=== PATIENT | female | born 1985 | race Caucasian/White ===

== ENCOUNTER 2017-02-08 20:10 | Emergency (ER) | payer BC ==
[2017-02-08 20:14] VITALS: TEMP 98.4
--- NOTE | 2017-02-08 20:17 | EDPHY ---
H & P Stated Complaint: Black spots in left field of vision, resolved upon arrival, [facility] , nausea now Time Seen by Provider: 02/08/17 20:16 HPI/ROS: CHIEF COMPLAINT: Headache, visual changes HISTORY OF PRESENT ILLNESS: The patient is a 31-year-old female presenting with sudden onset of headache with visual changes. The patient was cooking and started seeing black spots and "zig zags." She tried lying down but visual changes continued for about 20 minutes. She then developed pressure behind her left eye followed by a left sided headache. She took 600mg Ibuprofen but headache progressively worsened. She has associated nausea, no emesis. Patient does not usually get headaches. She has no history of migraines. She denies new numbness, new weakness, confusion, continued visual changes, trouble with speech. REVIEW OF SYSTEMS: A ten point review of systems was performed and is negative with the exception of the items mentioned in the HPI. Past medical history: Lipoma removal. Past surgical history: Denies. Family history: Noncontributory. Social history: with two children. at bedside. General Appearance: Alert. Vital signs reviewed. Eyes: Pupils equal and round, no conjunctival injection, no discharge. Anicteric. ENT, Mouth: Mucous membranes are moist, no oropharyngeal erythema or edema. Neck: No lymphadenopathy, supple. No meningismus. Respiratory: Lungs are clear to auscultation; no wheezes, rales, or rhonchi. Cardiovascular: Regular rate and rhythm; no murmur, rub, or gallop. Gastrointestinal: Abdomen is soft and nontender, no masses or organomegaly, bowel sounds normal. Skin: Warm and dry, no rashes on exposed skin, normal color. Back: Nontender to palpation over the thoracolumbar spine. No CVAT. Extremities: No lower extremity edema, no calf tenderness or swelling. Neurological: Alert and oriented. Moving all four extremities easily and equally. Cranial nerves II through XII are examined and are intact (visual acuity not tested). Strength is 5 over 5 bilaterally with testing of all major motor groups. Sensation is intact to light touch over all 4 extremities. Deep tendon reflexes are 2+ in the biceps and knees bilaterally. Psychiatric: Normal affect. Source: Patient - Personal History LMP (Females 10-55): 15-21 Days Ago Current Tetanus/Diphtheria Vaccine: Yes Tetanus Vaccine Date: 2012 - Medical/Surgical History Hx Asthma: No Hx Chronic Respiratory Disease: No Hx Diabetes: No Hx Cardiac Disease: No Hx Renal Disease: No Hx Cirrhosis: No Hx Alcoholism: No Hx HIV/AIDS: No Hx Splenectomy or Spleen Trauma: No Other PMH: polycystic ovarian syndrome - Social History Smoking Status: Never smoked Constitutional: Initial Vital Signs Temperature (C) 36.9 C 02/08/17 20:11 Heart Rate 77 02/08/17 20:11 Respiratory Rate 16 02/08/17 20:11 Blood Pressure 111/63 02/08/17 20:11 O2 Sat (%) 93 02/08/17 20:11 O2 Delivery Mode Room Air Allergies/Adverse Reactions: No Known Allergies Allergy (Verified 02/08/17 20:14) Home Medications: Medication Instructions Recorded NK [No Known Home Meds] 02/08/17 Medical Decision Making ED Course/Re-evaluation: Patient is a healthy female presenting with acute ocular migraine. Patient describes sudden onset of scotoma followed by left sided headache with associated nausea. Patient has a normal neurological exam. Plan for IV Toradol , Benadryl, Reglan, and fluids. No fever and I do not suspect infection such as meningitis. History does not suggest SAH. Re-evaluated at 9:15 p.m.. Her nausea has resolved. Her headache is improved but not gone. Re-examined around 9:45 PM. Headache now resolved. She is comfortable returning home. I feel that this was an ocular migraine, based on signs and symptoms. I do not feel that CT of brain or other imaging is needed at this time. Danger signs reviewed with the patient. Differential Diagnosis: Headache including but not limited to subarachnoid hemorrhage, migraine headache , tension headache and infectious causes such as meningitis, pharyngitis and sinusitis. - Data Points Medications Given: Discontinued Medications Diphenhydramine HCl (Benadryl Injection) 25 mg IVP EDNOW ONE Stop: 02/08/17 20:27 Last Admin: 02/08/17 20:43 Dose: 25 mg Sodium Chloride (Ns) 1,000 mls @ 0 mls/hr IV ONCE ONE; Wide Open PRN Reason: Protocol Stop: 02/08/17 20:27 Last Admin: 02/08/17 20:41 Dose: 1,000 mls Ketorolac Tromethamine (Toradol) 15 mg IVP EDNOW ONE Stop: 02/08/17 20:27 Last Admin: 02/08/17 20:42 Dose: 15 mg Metoclopramide HCl (Reglan Injection) 10 mg IVP EDNOW ONE Stop: 02/08/17 20:27 Last Admin: 02/08/17 20:45 Dose: 10 mg Departure - Departure Disposition: Home, Routine, Self-Care Clinical Impression: Ocular migraine Condition: Good Instructions: Ocular Migraine (ED) Additional Instructions: Drink plenty of fluids and get a sufficient amount of rest. Adult Pain Control: We recommend Acetaminophen (Tylenol) and Ibuprofen (Motrin,Advil) for pain and fever control. When fever is high or pain severe, both drugs can be used at the same time, but at different intervals. Please note the time differences. Your dose is: Acetaminophen 650mg every 4 to 6 hours Ibuprofen 600mg every 6-8 hours with food. Note: do not take Acetaminophen with Hydrocodone (Vicodin, Lortab) or Oycodone (Percocet). These medications also contain Acetaminophen. No more than 3000mg of Acetaminophen should be taken in 24 hours (for an adult). Followup with your primary care physician as needed. Return to the Emergency Department with severe headache, visual changes, numbness or weakness in your extremities, or worsening concerns. Referrals: Nenita Orellana MD [Primary Care Provider] - As per Instructions Report Scribed for: Marie Ascencio Report Scribed by: Estrella Vences Date of Report: 02/08/17 Time of Report: 20:23 Physician Review and Approval Statement: 02/08/17 20:23 Portions of this note were transcribed by the healthcare or medical. I, Dr. Marie Ascencio, personally performed the history, physical exam, and medical decision- making; and confirmed the accuracy of the information in the transcribed note.
[2017-02-08] MEDS ORDERED: NS 1,000 ML IV ONE (20:26)
[2017-02-08] MEDS ORDERED: METOCLOPRAMIDE 10 MG/2 ML VIAL IVP ONE (20:26)
[2017-02-08] MEDS ORDERED: KETOROLAC 30 MG/1 ML SDV IVP ONE (20:26)
[2017-02-08 21:59] VITALS: BP 98/47; PULSE 80; RESP 13; O2SAT 95
== END 2017-02-08 21:58 | disposition home or self-care (01) ==
DX: G43.809 Other migraine, not intractable, without status migrainosus (principal); E86.9 Volume depletion, unspecified
CPT/HCPCS: 96374; J1200; J1885; J2765